=== PATIENT | male | born 1945 | race Caucasian/White ===

== ENCOUNTER 2016-08-17 08:00 | Inpatient (IN) | payer MEDICARE, OTHER ==
[~2016-08-17] VITALS: Ht 155 cm; Wt 101.0 kg
[2016-08-18 04:43] LABS: HCT 31.7 % (42.0-52.0); HGB 10.7 g/dl (13.2-18.0); MCHC 33.8 g/dL (32.0-36.0); MCV 97.8 fL (78.0-100.0); MPV 9.7 fL (6.0-9.5); RBC 3.24 M/uL (4.70-6.00); RDW 13.3 % (11.5-14.0); WBC 10.7 K/uL (4.0-10.5)
[2016-08-18 05:11] LABS: CREATININE 0.9 mg/dL (0.7-1.2); MAGNESIUM 1.71 mg/dL (1.40-2.10); POTASSIUM 3.9 mmol/L (3.5-5.1)
[2016-08-19 05:05] LABS: HCT 31.9 % (42.0-52.0); MCH 33.7 pg (25.0-31.0); MCHC 34.5 g/dL (32.0-36.0); MCV 97.9 fL (78.0-100.0); MPV 9.2 fL (6.0-9.5); RBC 3.26 M/uL (4.70-6.00); RDW 13.2 % (11.5-14.0); WBC 11.3 K/uL (4.0-10.5)
[2016-08-19 05:20] LABS: CREATININE 0.8 mg/dL (0.7-1.2); POTASSIUM 4.1 mmol/L (3.5-5.1)
[2016-08-20 05:34] LABS: HCT 27.7 % (42.0-52.0); HGB 9.6 g/dl (13.2-18.0); MCH 33.8 pg (25.0-31.0); MCHC 34.7 g/dL (32.0-36.0); MCV 97.5 fL (78.0-100.0); RBC 2.84 M/uL (4.70-6.00); RDW 12.9 % (11.5-14.0); WBC 8.9 K/uL (4.0-10.5)
[2016-08-20 05:54] LABS: CREATININE 0.8 mg/dL (0.7-1.2); POTASSIUM 3.7 mmol/L (3.5-5.1)
[2016-08-20] MEDS ORDERED: PERCOCET 5/3251 TAB PO (11:22)
[2016-08-20] MEDS ORDERED: VITAMIN E400 UNIT PO (12:05)
[2016-08-20] MEDS ORDERED: MICARDIS HCT 81 EACH PO (12:05)
[2016-08-20] MEDS ORDERED: ZETIA10 M1 PO (12:05)
[2016-08-20] MEDS ORDERED: MELOXICAM15 MG PO (12:06)
[2016-08-20] MEDS ORDERED: VITAMIN D50000 UNIT PO (12:06)
[2016-08-20] MEDS ORDERED: FOLIC ACID1 MG PO (12:06)
[2016-08-20] MEDS ORDERED: VITAMIN B COMP1 EACH PO (12:07)
[2016-08-20] MEDS ORDERED: FLAX SEED OIL1000 MG PO (12:07)
[2016-08-20] MEDS ORDERED: XTANDI40 MG PO (12:07)
== END 2016-08-20 12:39 | disposition home health service (06) | DRG 483 ==
LOC: FMS 08:00
PROVIDERS: ADMIT Legal Medicine
PROC: 0RRJ00Z Replacement of Right Shoulder Joint with Reverse Ball and Socket Synthetic Substitute, Open Approach (ICD-10-PCS; principal; 2016-08-17 08:00)
DX: M19.011 Primary osteoarthritis, right shoulder (principal); C79.9 Secondary malignant neoplasm of unspecified site; C61 Malignant neoplasm of prostate; I10 Essential (primary) hypertension; E78.5 Hyperlipidemia, unspecified; I73.9 Peripheral vascular disease, unspecified; Z96.612 Presence of left artificial shoulder joint; Z96.652 Presence of left artificial knee joint; Z22.322 Carrier or suspected carrier of Methicillin resistant Staphylococcus aureus
CPT/HCPCS: 36415; 73020; 80048; 80053; 83735; 85025; 86850; 86900; 86901; 87640; 87641; 87900; 88304; 88311; 94010; 94762; 97110; 97116; 97163; 97167; 97530-GP; 97535; C1713; C1776; G0463; J0131; J0697; J1100; J1885; J2270; J2405; J2704; J2710; J2795; J3010; J3370